=== PATIENT | male | born 1945 | race Caucasian/White ===

== ENCOUNTER 2016-05-26 07:06 | Day surgery (SDC) | payer MEDICARE ==
[~2016-05-26] VITALS: Ht 170.2 cm; Wt 115.9 kg
[~2016-05-26 07:06] MED LIST: ACETAMINOPHEN 325 MG TABLET PO PRN; ATORVASTATIN CALCIUM 40 MG TABLET PO ONE; CLOPIDOGREL BISULFATE 75 MG TABLET PO ONE; DiphenhydrAMINE HCL 50 MG/ML VIAL IVP ONE; SODIUM CHLORIDE 0.9% 1,000 ML IV ONE
[2016-05-26] MEDS ORDERED: SODIUM CHLORIDE 0.9% 1,000 ML IV ONE (07:09)
[2016-05-26 07:46] LABS: APPEARANCE,URINE CLEAR (CLEAR); GLUCOSE, URINE (UA) NEGATIVE (NEGATIVE); KETONES,URINE NEGATIVE (NEGATIVE); LEUKOCYTE ESTERASE ,URINE NEGATIVE (NEGATIVE); OCCULT BLOOD,URINE TRACE (NEGATIVE); PROTEIN,URINE NEGATIVE (NEGATIVE)
[2016-05-26] MEDS ORDERED: CARV25 PO (07:47)
[2016-05-26] MEDS ORDERED: ASPI-1061 PO (07:47)
[2016-05-26] MEDS ORDERED: LEVO100 PO (07:47)
[2016-05-26 07:48] LABS: ADD UA MICROSCOPIC YES
[2016-05-26 07:51] LABS: RBC,URINE 0-2 /HPF (0-2); WBC,URINE 0-2 /HPF (0-5)
[2016-05-26 07:51] LABS: BASOPHILS # (AUTO) 0.04 K/uL (0.00-0.20); BASOPHILS % (AUTO) 0.5 % (0.0-2.0); EOSINOPHILS # (AUTO) 0.45 K/uL (0.00-0.70); EOSINOPHILS % (AUTO) 5.42 % (1.0-6.0); HEMATOCRIT 44.8 % (41-53); HEMOGLOBIN 15.1 g/dL (13.5-17.5); LYMPHOCYTES # (AUTO) 1.7 K/uL (1.0-4.8); LYMPHOCYTES % (AUTO) 20.5 % (22.0-44.0); MEAN CORPUSCULAR HEMOGLOBIN 31.4 pg (26.0-34.0); MEAN CORPUSCULAR HGB CONC 33.7 G/dL (31.0-37.0); MEAN CORPUSCULAR VOLUME 93 fL (80-100); MONOCYTES % (AUTO) 11.7 % (2.0-9.0); NEUTROPHILS # (AUTO) 5.2 K/uL (1.8-7.7); PLATELET COUNT (AUTO) 301 K/uL (150-450); RED BLOOD CELL COUNT(AUTO) 4.81 MIL/uL (4.50-5.90); RED CELL DISTRIBUTION WIDTH 13.8 % (11.5-14.5); WHITE BLOOD COUNT (AUTO) 8.3 K/uL (4.5-11.0)
[2016-05-26 07:52] LABS: SQUAMOUS EPITHELIAL CELL,UR Few /LPF (None Seen)
[2016-05-26 07:53] LABS: HYALINE CASTS, URINE 0-2 /LPF (None Seen)
[2016-05-26 07:56] LABS: PROTHROMBIN TIME 10.8 SEC (9.4-11.6)
[2016-05-26 07:58] LABS: ANION GAP 6 mmol/L (8-16); CARBON DIOXIDE 30 mmol/L (22-29); CHLORIDE 104 mmol/L (98-107); CREATININE 0.94 mg/dL (0.60-1.30); GLOMERULAR FILTR. RATE CALC > 60 mL/min (>60); POTASSIUM 4.2 mmol/L (3.5-5.1); SODIUM SERUM 140 mmol/L (136-145); UREA NITROGEN, BLOOD 17 mg/dL (7-18)
[2016-05-26 08:07] LABS: THYROID STIMULATING HORMONE 8.52 uIU/mL (0.36-3.74)
[2016-05-26 08:19] LABS: B-TYPE NATRIURETIC PEPTIDE 21 pg/mL (0-100)
[2016-05-26] MEDS ORDERED: ASPIRIN 325 MG TABLET PO SCH (09:00)
[2016-05-26] MEDS ORDERED: DiphenhydrAMINE HCL 50 MG/ML VIAL ONE (09:04)
[2016-05-26] MEDS ORDERED: FentaNYL CITRATE-PF 100 MCG/2 ML VIAL ONE (09:46)
[2016-05-26] MEDS ORDERED: SODIUM BICARBONATE 50 MEQ/50 ML VIAL ONE (09:47)
[2016-05-26] MEDS ORDERED: VERAPAMIL HCL 2.5 MG/ML 2 ML VIAL ONE (09:47)
[2016-05-26] MEDS ORDERED: IOHEXOL 300 MG/ML 150 ML VIAL ONE (09:47)
[2016-05-26] MEDS ORDERED: HEPARIN SODIUM 1000 UNITS/NS 1,000 ML ONE (09:47)
[2016-05-26] MEDS ORDERED: LIDOCAINE HCL/PF 1% 30 ML VIAL ONE (09:47)
[2016-05-26] MEDS ORDERED: NITROGLYCERIN 50 MG/D5% WATER 0 ML ONE (09:47)
[2016-05-26] MEDS ORDERED: MIDAZOLAM HCL 2 MG/2 ML VIAL ONE (09:47)
[2016-05-26 10:01] VITALS: BP 161/89
[2016-05-26] MEDS ORDERED: MIDAZOLAM HCL 2 MG/2 ML VIAL IVP ONE (10:55)
[2016-05-26] MEDS ORDERED: LIDOCAINE 1% 30 ML/SOD BICARB 8.4% 4 ML SQ ONE (10:55)
[2016-05-26] MEDS ORDERED: FentaNYL CITRATE-PF 100 MCG/2 ML VIAL IVP ONE (10:55)
[2016-05-26] MEDS ORDERED: HEPARIN SODIUM 1000 UNITS/NS 1,000 ML IARTER ONE (11:00)
[2016-05-26] MEDS ORDERED: IOHEXOL 300 MG/ML 150 ML VIAL IARTER ONE (11:03)
[2016-05-26 11:26] VITALS: BP 142/78
== END 2016-05-26 15:45 | disposition home or self-care (01) ==
LOC: CATHLAB 07:06 → EDSEX 09:30 → CATHLAB 15:45
PROVIDERS: ATTEND Internal Medicine Interventional Cardiology
DX: I25.10 Atherosclerotic heart disease of native coronary artery without angina pectoris (principal); I69.954 Hemiplegia and hemiparesis following unspecified cerebrovascular disease affecting left non-dominant side; Z98.890 Other specified postprocedural states; Z79.01 Long term (current) use of anticoagulants; Z79.899 Other long term (current) drug therapy
CPT/HCPCS: 36415; 71010; 80048; 81001; 83880; 84443; 85025; 85610; 85730; 93005; 93458; C1892; J1200; J1644; J2250; J3010; J3490 ×2; J7030; Q9967